=== PATIENT | female | born 1985 | race Caucasian/White ===

== ENCOUNTER 2016-07-08 19:26 | Emergency (ER) | payer MEDICARE, MEDICAID ==
[~2016-07-08] VITALS: Ht 165.1 cm; Wt 108.9 kg
[2016-07-08 19:34] VITALS: BP 134/65
--- NOTE | 2016-07-08 19:41 | PHYS DOC ---
Past Medical History Past Medical History: Depression Additional Past Medical Histor: Panic Disorder Past Surgical History: Cholecystectomy Alcohol Use: None Drug Use: None Adult General Chief Complaint Chief Complaint: INSECT BITE HPI HPI Patient is a 31 year old resents with complaints of possible foreign body in her right lower shimmy. Patient states she had a tick on her leg which she removed. She states this was one week ago. She believes that she may have left a portion of the tick in her body. She states that she continues to pick at the area and it has become red and irritated. She reports no fever, no bull's-eye pattern or surrounding rash. Review of Systems Review of Systems Constitutional: Denies fever or chills [] Eyes: Denies change in visual acuity, redness, or eye pain [] HENT: Denies nasal congestion or sore throat [] Respiratory: Denies cough or shortness of breath [] Cardiovascular: No additional information not addressed in HPI [] GI: Denies abdominal pain, nausea, vomiting, bloody stools or diarrhea [] : Denies dysuria or hematuria [] Musculoskeletal: Denies back pain or joint pain [] Integument: Tick bite Neurologic: Denies headache, focal weakness or sensory changes [] Endocrine: Denies polyuria or polydipsia [] Allergies Allergies Allergies Coded Allergies Type Severity Reaction Last Updated Verified No Known Drug Allergies 03/31/13 No Physical Exam Physical Exam Constitutional: Well developed, well nourished, no acute distress, non-toxic appearance. [] HENT: Normocephalic, atraumatic, bilateral external ears normal, oropharynx moist, no oral exudates, nose normal. [] Eyes: PERRLA, EOMI, conjunctiva normal, no discharge. [] Neck: Normal range of motion, no tenderness, supple, no stridor. [] Cardiovascular:Heart rate regular rhythm, no murmur [] Lungs & Thorax: Bilateral breath sounds clear to auscultation [] Abdomen: Bowel sounds normal, soft, no tenderness, no masses, no pulsatile masses. [] Skin: Right lower extremity just distal to the knee and medial, 1 cm area of erythema and induration with a central pustule. Current Patient Data Vital Signs Vital Signs Date Time Temp Pulse Resp B/P (MAP) Pulse Ox O2 Delivery O2 Flow Rate FiO2 07/08/16 19:34 99.4 89 18 98 Room Air 99.4 EKG EKG [] Radiology/Procedures Radiology/Procedures [] Course & Med Decision Making Course & Med Decision Making Procedure: The wound was cleansed with Betadine normal saline, an 18-gauge needle was utilized for exploration, no foreign body noted. Small amount of. Discharge. Patient tolerated procedure well. Pertinent Labs and Imaging studies reviewed. (See chart for details) [] Dragon Disclaimer Dragon Disclaimer This electronic medical record was generated, in whole or in part, using a voice recognition dictation system. Departure Departure Impression: Primary Impression: Insect bite Additional Impression: Cellulitis Disposition: HOME, SELF-CARE Condition: STABLE Referrals: HE VILLANUEVA MD (PCP) Patient Instructions: Cellulitis, Insect Bite Scripts Doxycycline Hyclate (DOXYCYCLINE HYCLATE) 100 Mg Capsule 1 CAP PO BID, #20 CAP Prov: JAMEL GAONA APRN 07/08/16 Problem Qualifiers JAMEL GAONA APRN July 08, 2016 19:41
[2016-07-08] MEDS ORDERED: DOXY100C2 PO (20:06)
== END 2016-07-08 20:17 | disposition home or self-care (01) ==
LOC: ER 19:26
DX: S80.261A Insect bite (nonvenomous), right knee, initial encounter (principal); L03.115 Cellulitis of right lower limb; F32.9 Major depressive disorder, single episode, unspecified; F41.0 Panic disorder [episodic paroxysmal anxiety]; W57.XXXA Bitten or stung by nonvenomous insect and other nonvenomous arthropods, initial encounter; Y93.89 Activity, other specified; Y92.89 Other specified places as the place of occurrence of the external cause; Y99.8 Other external cause status
CPT/HCPCS: 10060; 99283-25

== ENCOUNTER 2016-11-27 11:50 | Emergency (ER) | payer MEDICARE, MEDICAID ==
[~2016-11-27] VITALS: Ht 165.1 cm; Wt 104.3 kg
[~2016-11-27 11:50] MED LIST: DOXY100C2 PO
[2016-11-27 12:05] VITALS: BP 153/65
[2016-11-27] MEDS ORDERED: CYCL10TA2 PO (12:24)
--- NOTE | 2016-11-27 12:24 | PHYS DOC ---
Past Medical History Past Medical History: Anxiety, Depression Additional Past Medical Histor: Panic Disorder Past Surgical History: Cholecystectomy Alcohol Use: None Drug Use: None Adult General Chief Complaint Chief Complaint: LOWER BACK PAIN OR INJURY [facility] HPI Patient is a 31 year old female presents to the emergency department stating that she is having left lower buttock pain that radiates down into her left leg. She states this is been going on for approximately 3 weeks. She states she' s been taken ibuprofen 400 mg twice day which is helped relieve the pain and discomfort. Patient denies any trauma or injury. She does state that she is working at [employer] and has opened up the leg away department and has had increased pain since that time. She denies any loss of bowel or bladder. She denies any further signs and symptoms. Review of Systems Review of Systems Constitutional: Denies fever or chills [] Eyes: Denies change in visual acuity, redness, or eye pain [] HENT: Denies nasal congestion or sore throat [] Respiratory: Denies cough or shortness of breath [] Cardiovascular: No additional information not addressed in HPI [] GI: Denies abdominal pain, nausea, vomiting, bloody stools or diarrhea [] : Denies dysuria or hematuria [] Musculoskeletal: left lower buttock pain with radiation of pain to the left leg Integument: Denies rash or skin lesions [] Neurologic: Denies headache, focal weakness or sensory changes [] Endocrine: Denies polyuria or polydipsia [] Allergies Allergies Allergies Coded Allergies Type Severity Reaction Last Updated Verified No Known Drug Allergies 03/31/13 No Physical Exam Physical Exam Constitutional: Well developed, well nourished, no acute distress, non-toxic appearance. [] HENT: Normocephalic, atraumatic, bilateral external ears normal, oropharynx moist, no oral exudates, nose normal. [] Eyes: PERRLA, EOMI, conjunctiva normal, no discharge. [] Neck: Normal range of motion, no tenderness, supple, no stridor. [] Cardiovascular:Heart rate regular rhythm, no murmur [] Lungs & Thorax: Bilateral breath sounds clear to auscultation [] Skin: Warm, dry, no erythema, no rash. [] Back: No lumbar spine tenderness, no crepitus, no deformities and no step-offs noted. Patient did have tenderness noted in the left buttocks area near the sciatic nerve. Extremities: No tenderness, no cyanosis, no clubbing, ROM intact, no edema. Peripheral pulses 2+ cap refill brisk less than 2 seconds. Equal strength noted to bilateral lower extremities. Neurologic: Alert and oriented X 3, normal motor function, normal sensory function, no focal deficits noted. [] Psychologic: Affect normal, judgement normal, mood normal. [] Current Patient Data Vital Signs Vital Signs Date Time Temp Pulse Resp B/P (MAP) Pulse Ox O2 Delivery O2 Flow Rate FiO2 11/27/16 12:05 98.0 93 16 153/65 (94) 96 Room Air 98.0 EKG EKG [] Radiology/Procedures Radiology/Procedures [] Course & Med Decision Making Course & Med Decision Making Pertinent Labs and Imaging studies reviewed. (See chart for details) Spoke with patient regards to proper body mechanics that heavy lifting and turning. Patient will be encouraged to use ibuprofen 800 mg every 8 hours with food. She'll also be encouraged to use Flexeril at night to help with the pain and discomfort due to the fact it causes drowsiness. Also recommended limitations of lifting less than 10 pounds for the next 3-5 days. Patient will be discharged home in stable condition recommended following up with a primary care physician in the next 7-10 days. Patient agrees with discharge instructions , treatment regimens and follow-up recommendations. All questions and concerns was answered at the patient's bedside. [] Dragon Disclaimer Dragon Disclaimer This electronic medical record was generated, in whole or in part, using a voice recognition dictation system. Departure Departure Impression: Primary Impression: Sciatica of left side Disposition: 01 HOME, SELF-CARE Condition: STABLE Referrals: HE VILLANUEVA MD (PCP) Patient Instructions: Sciatica with [facility], Sciatica, [id number] Additional Instructions: Activity as tolerated. Continue with ibuprofen 800 mg every 8 hours with food. Stop taking few develop an upset stomach. Flexeril will help with muscle spasms this medication will cause drowsiness do not take any be alert and oriented. Ice packs on 20 minutes off 20 minutes several times a day. Limit weight lifting to less than 10 pounds for the next 5 days. Follow-up the primary care physician in the next 7-10 days if he continued have pain and discomfort. Return back to emergency department for signs symptoms of become worse. Scripts Cyclobenzaprine Hcl (CYCLOBENZAPRINE HCL) 10 Mg Tablet 1 TAB PO TID Y for MUSCLE SPASMS, #30 TAB Prov: KEVIN WHITLOCK APRN 11/27/16 KEVIN WHITLOCK APRN Nov 27, 2016 12:24
== END 2016-11-27 12:34 | disposition home or self-care (01) ==
LOC: ER 11:50
DX: M54.42 Lumbago with sciatica, left side (principal); Z90.49 Acquired absence of other specified parts of digestive tract
CPT/HCPCS: 99283

== ENCOUNTER → 2018-07-11 | Outpatient (CLI) | payer BC ==
[~2018-07-11] MED LIST changes: +CYCL10TA2 PO
--- NOTE | 2018-07-11 17:15 | RAD ---
Obstetrical ultrasound, 07/11/2018: HISTORY: Uterine size/date discrepancy Transabdominal scans were obtained. The study was partially compromised by the patient's body habitus. There is a single intrauterine fetus in a transverse orientation. The biparietal diameter measures 4.1 cm compatible with a gestational age of 18-19 weeks. This corresponds well with the other measurements yielding an average gestational age of 18 weeks and 6 days and a sonographic EDC of 12/06/2018. Normal activity and heart motion were seen. A four-chamber heart is evident with a heart rate of 147 bpm. Fluid was identified in the bladder and stomach. A three-vessel umbilical cord is identified with a normal cord insertion site. The visualized portions of the spine and kidneys are unremarkable. A normal amount of amniotic fluid is present. The placenta lies posteriorly. It extends into the lower uterine segment. There is a 4.3 cm myometrial mass which appears to be partially calcified in the lower uterine segment near the cervix. This is probably a uterine fibroid. The internal cervical os is poorly defined due to this mass and the patient's body habitus. The cervical length was estimated at 4.3 cm. IMPRESSION: 1. Single viable intrauterine fetus of 18-19 weeks gestational age. 2. Probable fibroid in the lower uterine segment near the cervix with associated poor definition of the cervix. The adjacent placenta appears to be low lying. Electronically signed by: Ethan Quinn MD (07/11/2018 5:12 PM) [facility]
== END | disposition home or self-care (01) ==
LOC: US 12:19
PROVIDERS: ATTEND Obstetrics & Gynecology
DX: O26.842 Uterine size-date discrepancy, second trimester (principal); Z3A.19 19 weeks gestation of pregnancy
CPT/HCPCS: 76805

== ENCOUNTER → 2018-08-22 | Outpatient (CLI) | payer BC | END | disposition home or self-care (01) | LOC: LAB 09:31 | PROVIDERS: ATTEND Obstetrics & Gynecology | DX: O09.90 Supervision of high risk pregnancy, unspecified, unspecified trimester (principal) | CPT/HCPCS: 36415; 82947; 82950 ==

== ENCOUNTER → 2018-09-13 | Outpatient (CLI) | payer BC ==
--- NOTE | 2018-09-13 17:22 | KCIC ---
OB ultrasound study greater than 14 weeks-transabdominal and transvaginal exam Clinical indications: Low-lying placenta. Follow-up study. COMPARISON: July 11, 2018. Findings: A single intrauterine fetus is seen in breech position. heart rate is 144 beats per minute. BPD is 7.02 cm which equals 28 weeks 1 days. HC is 26.52 cm which equals 28 weeks 6 days. AC is 24.87 cm which equals 29 weeks 1 days. FL is 5.28 cm which equals 28 weeks 1 days. Average gestational age by ultrasound is 28 weeks 4 days +/- 2 weeks with an EDC of December 02, 2018. There has been normal interval growth. Estimated weight is 2 lbs and 13 oz. The anatomy was not evaluated. JAMIE using the four quadrant method is 16 cm. A grade 0 posterior low-lying placenta is seen. No placenta previa and no placenta abruptio is identified. Again seen is a low posterior uterine fibroid or upper cervical fibroid measuring 4.4 cm in greatest dimension. This measured 4.3 cm previously. The maternal ovaries are not visualized. Transvaginal exam: Cervical length is 5.3 cm. No funneling or opening of the cervical canal is seen. Inferior tip of the placenta is located 6.5 cm superior to the cervical internal os. IMPRESSION: No placenta previa. Electronically signed by: Juve Dunn MD (09/13/2018 5:19 PM) [facility]
== END | disposition home or self-care (01) ==
LOC: KCIC US 15:19
PROVIDERS: ATTEND Obstetrics & Gynecology
DX: O09.893 Supervision of other high risk pregnancies, third trimester (principal); Z3A.28 28 weeks gestation of pregnancy
CPT/HCPCS: 76805; 76817

== ENCOUNTER 2018-09-21 10:38 | Observation (INO) | payer BC ==
[2018-09-21 12:04] LABS: BILIRUBIN,URINE NEGATIVE (NEG); CLARITY,URINE CLEAR; COLOR,URINE YELLOW; NITRITE,URINE NEGATIVE (NEG); PH,URINE 6.5; PROTEIN,URINE NEGATIVE (NEG-TRACE)
[2018-09-21 12:10] LABS: BARBITURATES NEG (NEG); BENZODIAZEPINES NEG (NEG); CANNABINOIDS NEG (NEG); COCAINE NEG (NEG); METHADONE NEG (NEG); OPIATES NEG (NEG); PHENCYCLIDINE NEG (NEG)
[2018-09-21 12:14] LABS: AMPHETAMINE/METHAMPHETAMINE NEG (NEG)
[2018-09-21 12:37] LABS: SQUAMOUS EPITHELIAL CELL,UR MANY /LPF
[2018-09-21 12:38] LABS: BACTERIA,URINE MODERATE /HPF (0-FEW)
== END 2018-09-21 13:25 | disposition home or self-care (01) ==
LOC: 3 SO LND 10:38
PROVIDERS: ADMIT Obstetrics & Gynecology; ATTEND Obstetrics & Gynecology
DX: O26.853 Spotting complicating pregnancy, third trimester (principal); O26.893 Other specified pregnancy related conditions, third trimester; R10.9 Unspecified abdominal pain; Z3A.29 29 weeks gestation of pregnancy
CPT/HCPCS: 80307; 81001; 87086; G0378; G0379